=== PATIENT | female | born 1980 | race Caucasian/White ===

== ENCOUNTER → 2018-04-08 | Outpatient (CLI) | payer OTHER ==
[~2018-04-08] MED LIST: Advil200 M1 PO; CEPH500 PO; CRUTCH2 XX; Lotrimin AF90 GM TP; Percocet 5-3251 EACH PO; RXHYDACE PO; Seasonique 0.11 EACH PO
[2018-04-09 15:08] LABS: HPV 16 Negative (Negative); HPV 18 Negative (Negative); HPV OTHER HR TYPES Negative (Negative)
== END ==
LOC: LAB 09:20 → LAB SHORT 09:20
PROVIDERS: Nurse Practitioner Family
DX: Z12.4 Encounter for screening for malignant neoplasm of cervix (principal)
CPT/HCPCS: 87624; G0145

== ENCOUNTER → 2021-03-14 | Outpatient (CLI) | payer OTHER ==
[2021-03-15 18:12] LABS: CORONAVIRUS (COVID19) CSH-NRL Positive (Negative)
== END ==
LOC: LAB SHORT 10:58 → LAB 10:58
PROVIDERS: Physician Assistant
DX: J06.9 Acute upper respiratory infection, unspecified (principal); Z20.822 Contact with and (suspected) exposure to COVID-19
CPT/HCPCS: U0003

== ENCOUNTER 2022-07-01 08:44 | Emergency (ER) | payer OTHER ==
[~2022-07-01] VITALS: Ht 170.2 cm; Wt 68.0 kg
[2022-07-01] MEDS ORDERED: CEPH500 PO (10:14)
[2022-07-01] MEDS ORDERED: Bactrim Ds Tab1 EACH PO (10:14)
== END 2022-07-01 10:28 | disposition home or self-care (01) ==
LOC: ER 08:44
DX: L02.415 Cutaneous abscess of right lower limb (principal); L03.115 Cellulitis of right lower limb
CPT/HCPCS: 87070; 87075; 87077; 87147; 87186; 87205

== ENCOUNTER 2024-05-11 08:32 | Emergency (ER) | payer OTHER ==
[~2024-05-11] VITALS: Ht 170.2 cm; Wt 104.3 kg
[~2024-05-11 08:32] MED LIST changes: +Bactrim Ds Tab1 EACH PO
[2024-05-11 09:19] VITALS: BP 144/113
[2024-05-11] MEDS ORDERED: AMOCLA875 (09:22)
[2024-05-11] MEDS ORDERED: HYDROcodone 5-APAP 325 TAB PO ONE (10:05)
[2024-05-11] MEDS ORDERED: HYDROCODONE-AC1 EA10 PO (10:57)
== END 2024-05-11 11:16 | disposition home or self-care (01) ==
LOC: ER 08:32
DX: L02.31 Cutaneous abscess of buttock (principal); Z79.899 Other long term (current) drug therapy; Z48.01 Encounter for change or removal of surgical wound dressing
CPT/HCPCS: 10061; 80053; 85025; 85610; 85730; 93005; 93010; 96374; 99283-25; A9270; J2405

== ENCOUNTER 2024-05-15 12:04 | Emergency (ER) | payer OTHER ==
[~2024-05-15] VITALS: Ht 172.7 cm; Wt 81.7 kg
[~2024-05-15 12:04] MED LIST changes: +AMOCLA875; +HYDROCODONE-AC1 EA10 PO
[2024-05-15 12:20] VITALS: BP 157/86
[2024-05-15] MEDS ORDERED: HYDR1TAB94 PO (14:39)
[2024-05-15] MEDS ORDERED: HYDROCODONE-AC1 EA10 PO (14:44)
== END 2024-05-15 14:40 | disposition home or self-care (01) ==
LOC: ER 12:04
DX: L02.31 Cutaneous abscess of buttock (principal)
CPT/HCPCS: 99282

== ENCOUNTER → 2024-10-29 | Outpatient (CLI) | payer OTHER ==
[~2024-10-29] MED LIST changes: +HYDR1TAB94 PO
[2024-11-04 10:13] LABS: HPV HIGH RISK BY TMA Not Detected; HPV SOURCE Cervical
== END ==
LOC: LAB SHORT 14:52 → LAB 14:52
PROVIDERS: Nurse Practitioner Family
DX: Z12.4 Encounter for screening for malignant neoplasm of cervix (principal)
CPT/HCPCS: 87624; G0123

== ENCOUNTER → 2024-12-30 | Outpatient (CLI) | payer OTHER | LOC: LAB SHORT 09:49 → LAB 09:49 | DX: N39.0 Urinary tract infection, site not specified (principal) | CPT/HCPCS: 87077; 87086; 87186 ==